=== PATIENT | female | born 1980 ===

== ENCOUNTER 2017-11-15 12:20 | Inpatient (IN) | payer BC ==
[~2017-11-15] VITALS: Ht 162.6 cm; Wt 70.0 kg
[~2017-11-15 12:20] MED LIST: MIRALAX17 GM; Percocet 7.5-31 EACH PO
[2017-11-18] MEDS ORDERED: Verotin-Gr Cap1 EACH PO (10:01)
[2017-11-18 10:37] LABS: BASOPHILS ABSOLUTE AUTO 0.04 K/mm3 (0.00-0.23); BASOPHILS PERCENT AUTO 1 % (0-2); EOSINOPHILS ABSOLUTE AUTO 0.17 K/mm3 (0.00-0.68); EOSINOPHILS PERCENT AUTO 3 % (0-6); Hematocrit 37.5 % (33.0-51.0); Hemoglobin 12.4 g/dL (11.5-16.0); IMMATURE GRAN ABSOLUTE AUTO 0.02 K/mm3 (0.00-0.10); IMMATURE GRAN PERCENT AUTO 0 % (0-1); LYMPHOCYTES ABSOLUTE AUTO 1.74 K/mm3 (0.84-5.20); LYMPHOCYTES PERCENT AUTO 29 % (21-46); MONOCYTES ABSOLUTE AUTO 0.48 K/mm3 (0.16-1.47); MONOCYTES PERCENT AUTO 8 % (4-13); Mean Corpuscular HGB 28.8 pg (26.0-34.0); Mean Corpuscular HGB Conc 33.1 g/dL (31.5-36.5); Mean Corpuscular Volume 87 fL (80-100); NEUTROPHILS ABSOLUTE AUTO 3.58 K/mm3 (1.96-9.15); NEUTROPHILS PERCENT AUTO 59 % (41-73); RDW Coefficient Variation 15.4 % (11.7-14.2); RDW Standard Deviation 48.4 fL (35.1-46.3); White Blood Cell Count 6.03 K/mm3 (4.00-11.30)
[2017-11-18 10:38] LABS: Mean Platelet Volume 13.1 fL (9.1-12.4); Platelet Count 117 K/mm3 (150-400)
[2017-11-21 05:43] LABS: Hematocrit 36.1 % (33.0-51.0); Hemoglobin 11.9 g/dL (11.5-16.0); Mean Corpuscular HGB 28.6 pg (26.0-34.0); Mean Corpuscular Volume 87 fL (80-100); Platelet Count 133 K/mm3 (150-400); RDW Coefficient Variation 15.7 % (11.7-14.2); RDW Standard Deviation 49.4 fL (35.1-46.3); Red Blood Cell Count 4.16 M/mm3 (3.80-5.20); White Blood Cell Count 9.98 K/mm3 (4.00-11.30)
[2017-11-21 05:44] LABS: Mean Platelet Volume 13.2 fL (9.1-12.4)
[2017-11-22] MEDS ORDERED: Percocet 5-3251 EACH PO (08:35)
== END 2017-11-22 16:10 | disposition home or self-care (01) | DRG 788 ==
LOC: BC 11-20 06:10
PROVIDERS: Obstetrics & Gynecology
PROC: 10D00Z1 Extraction of Products of Conception, Low, Open Approach (ICD-10-PCS; principal; 2017-11-20 07:30)
PROC: 3E0234Z Introduction of Serum, Toxoid and Vaccine into Muscle, Percutaneous Approach (ICD-10-PCS; 2017-11-22)
DX: O34.211 Maternal care for low transverse scar from previous cesarean delivery (principal); Z3A.39 39 weeks gestation of pregnancy; Z37.0 Single live birth; Z23 Encounter for immunization
CPT/HCPCS: 36415; 85025; 85027; 85460; 86850; 86900; 86901; 90686; 96372; J0690; J1885; J2270; J2370; J2405; J2590; J2765; J2790; J3010; J7120; Q0163